=== PATIENT | male | born 1935 | race African-American/Black ===

== ENCOUNTER 2022-02-13 16:23 | Inpatient (IN) | payer MEDICARE, BC ==
[~2022-02-13] VITALS: Ht 175.3 cm; Wt 95.3 kg
--- NOTE | 2022-02-13 17:00 | NUR ---
Family at bedside Both aware of plan.
[2022-02-13 17:28] LABS: BASOPHILS % (AUTO) 0.4 % (0.0-2.0); EOSINOPHILS % (AUTO) 1.9 % (0.0-6.0); HEMATOCRIT 35 % (39-51); HEMOGLOBIN 11.7 g/dL (13.5-17.5); LYMPHOCYTES # (AUTO) 0.8 K/uL (0.8-4.8); LYMPHOCYTES % (AUTO) 17.2 % (20.0-44.0); MEAN CORPUSCULAR HGB CONC 34 g/dl (31.0-36.0); MEAN CORPUSCULAR VOLUME 101 fL (80-96); MONOCYTES # (AUTO) 0.6 K/uL (0.1-1.30); MONOCYTES % (AUTO) 13.3 % (2.0-12.0); NEUTROPHILS # (AUTO) 3.3 K/uL (1.8-8.9); NEUTROPHILS % (AUTO) 67.2 % (43.0-81.0); PLATELET COUNT (AUTO) 234 K/uL (150-450); RED BLOOD CELL COUNT(AUTO) 3.45 MIL/uL (4.5-6.0); WHITE BLOOD COUNT (AUTO) 4.8 K/uL (4.3-11.0)
[2022-02-13 17:44] LABS: CALCIUM, SERUM 8.7 mg/dL (8.5-10.1); CARBON DIOXIDE 26 mmol/L (21-32); CHLORIDE 103 mmol/L (98-107); CREATININE 1.6 mg/dL (0.6-1.3); GLUCOSE 134 mg/dL (74-106); POTASSIUM 4.9 mmol/L (3.5-5.1); SODIUM SERUM 137 mmol/L (136-145); UREA NITROGEN, BLOOD 27 mg/dL (7-18)
[2022-02-13 18:02] LABS: ALANINE AMINOTRANSFERASE 13 U/L (12-78); ALBUMIN 3.7 g/dL (3.4-5.0); ALKALINE PHOSPHATASE 76 U/L (46-116); ASPARTATE AMINOTRANSFERASE 16 U/L (15-37); BILIRUBIN,DIRECT 0.1 mg/dL (0.0-0.2); BILIRUBIN,TOTAL 0.5 mg/dL (0.2-1.0)
--- NOTE | 2022-02-13 19:08 | NUR ---
SUBMITTED MOVE SHEETS
--- NOTE | 2022-02-13 19:25 | NUR ---
RECEIVED REPORT FROM ARJUN KEITH. PATIENT CAME EARLIER WITH CC OF SYNCOPAL EPISODE AT HOME AFTER HAVING 2 GLASSES OF LATASHA. PER PATIENT THIS IS THE FIRST TIME THAT HAPPENED. USUALLY HE HAS [place] EVERYDAY. PATIENT IS AAOX4. ABLE TO MAKE NEEDS KNOWN. ATTACHED TO MONITOR. VITALS CHECKED.
--- NOTE | 2022-02-13 19:49 | NUR ---
Note [email or web address] in EDM - 02/13/22 at 1959 by GERMAINE RECEIVED REPORT FROM ARJUN GALDAMEZ. PATIENT CAME WITH TRACHE AND WAS USING VENT. HE CAME WITH CC OF UNABLE TO SWALLOW. PATIENT HAS FLAVIO UPPER AND LOWER EXTREMITIES CONTRACTURES. HE RESPONDS BY KNODDING HIS HEAD AND TALKING...
--- NOTE | 2022-02-13 19:49 | NUR ---
Note sandeep in EDM - 02/13/22 at 1959 by GERMAINE CAREGIVER AND RT AT BEDSIDE. PATIENT HAS NO PAIN COMPLAINTS. ATTACHED TO MONITOR. VITALS CHECKED.
--- NOTE | 2022-02-13 20:14 | NUR ---
COVID SWAB DONE AND SENT TO LAB
--- NOTE | 2022-02-13 20:31 | NUR ---
CALLED [facility], PAGED FOR ADMISSION
[2022-02-13] MEDS ORDERED: MAG HYDROX/AL HYDROX/SIMETH 30 ML UDC PO PRN (21:00)
[2022-02-13] MEDS ORDERED: ACETAMINOPHEN 325 MG TABLET PO PRN (21:00)
[2022-02-13] MEDS ORDERED: ONDANSETRON HCL/PF 4 MG/2 ML VIAL IVP PRN (21:00)
[2022-02-13] MEDS ORDERED: Z GUARD REMEDY 4 OZ OINT TP PRN (21:00)
[2022-02-13] MEDS ORDERED: MAGNESIUM HYDROXIDE 30 ML UDC PO PRN (21:00)
[2022-02-13] MEDS ORDERED: IV NS 0.9% 1,000 ML IV PRN (21:00)
[2022-02-13] MEDS ORDERED: FAMOTIDINE (20 MG) 20 MG TABLET ONE (21:26)
--- NOTE | 2022-02-13 21:28 | NUR ---
2DECHO DONE AT BEDSIDE
[2022-02-13] MEDS ORDERED: FAMOTIDINE (20 MG) 20 MG TABLET PO ONE (21:30)
--- NOTE | 2022-02-13 21:42 | NUR ---
EF 65-70 PER TECH
--- NOTE | 2022-02-14 02:56 | NUR ---
REPORT GIVEN TO GISELE ValdiviaW RN FOR SEAN
[2022-02-14 04:30] VITALS: BP 152/69
--- NOTE | 2022-02-14 04:30 | NUR ---
TOOL GRINDER OPERATOR EXTERNALDEICER TESTER NOTES RECEIVED FROM ER,VIA KATERINE THIS 86 YO OLD MALE ALERT,ORIENTED X4,WITH CHIEF COMPLAINTS OF SYNCOPAL EPISODES WHILE SITTING AT A [employer].ALERT,ORIENTED X4,ABLE TO MAKE NEEDS KNOWN,AMBULATE WITH CANE,WITH KNOWN HISTORY LEFT ANKLE FRACTURE,NO FALL HX,NOTED DIABETIC FOOT SKIN DISCOLORATION.DENIES DIZZINESS.SALINE LOCK LEFT AC INTACT AND PATENT.WILL START ON IVF ORDERED.KIMBERLY CHEST PAIN,O2 SAT 98% ON ROOM AIR.CALL LIGHT IN REACH,NEEDS ANTICIPATED.
--- NOTE | 2022-02-14 04:39 | NUR ---
TRANSFERRED TO ROOM VIA ACLS PROTOCOL
[2022-02-14 05:00] VITALS: BP 152/69
[2022-02-14 06:26] VITALS: BP 152/69
[2022-02-14 06:27] VITALS: BP 141/57
[2022-02-14 06:29] VITALS: BP 135/59
--- NOTE | 2022-02-14 06:46 | NUR ---
TOOLING MECHANIC NOTES IVF NS AT 75ML/HR RATE STARTED.
--- NOTE | 2022-02-14 06:47 | NUR ---
SOCCER COMMENTATOR NOTES SB-55 ON TELE MONITOR.ORTHOSTATIC BP CHECKED AND RECORDED.DENIES CHEST PAIN.INSTRUCTED BREAKFAST WILL BE DELAYED TILL SEEN BT PHYSICAL SECURITY ENGINEER, OTHERWISE STABLE.
[2022-02-14 07:15] LABS: CALCIUM, SERUM 8.9 mg/dL (8.5-10.1); CARBON DIOXIDE 25 mmol/L (21-32); CHLORIDE 103 mmol/L (98-107); CREATININE 1.3 mg/dL (0.6-1.3); GLUCOSE 136 mg/dL (74-106); MAGNESIUM 2.6 mg/dL (1.8-2.4); PHOSPHORUS 3.4 mg/dL (2.5-4.9); POTASSIUM 4.5 mmol/L (3.5-5.1); SODIUM SERUM 135 mmol/L (136-145); UREA NITROGEN, BLOOD 30 mg/dL (7-18)
[2022-02-14 07:21] LABS: THYROID STIMULATING HORMONE 1.231 uIU/mL (0.358-3.74)
[2022-02-14] MEDS ORDERED: PANTOPRAZOLE 40 MG TABLET.DR PO SCH (07:30)
--- NOTE | 2022-02-14 07:40 | NUR ---
TELECOMMUNICATIONS ADMINISTRATOR OPENING NOTES RECEIVED PATIENT ALERT,ORIENTED X4,ABLE TO MAKE NEEDS KNOWN,AMBULATE WITH CANE, SALINE LOCK LEFT AC INTACT AND PATENT. ON ROOM AIR TOLERATING WELL . ALL SAFETY MEASURES MAINTAINED: BED LOCKED AND IN LOWEST POSITION, SIDE RAILS UP X2. CALL LIGHT IN EASY REACH. WILL CONTINUE TO MONITOR.
[2022-02-14 08:00] VITALS: BP 137/62
[2022-02-14 08:33] LABS: BASOPHILS % (AUTO) 0.2 % (0.0-2.0); EOSINOPHILS % (AUTO) 1.1 % (0.0-6.0); HEMATOCRIT 32 % (39-51); HEMOGLOBIN 10.6 g/dL (13.5-17.5); LYMPHOCYTES # (AUTO) 1.1 K/uL (0.8-4.8); MEAN CORPUSCULAR HGB CONC 33 g/dl (31.0-36.0); MEAN CORPUSCULAR VOLUME 101 fL (80-96); MONOCYTES # (AUTO) 0.6 K/uL (0.1-1.30); MONOCYTES % (AUTO) 10.1 % (2.0-12.0); NEUTROPHILS # (AUTO) 4.4 K/uL (1.8-8.9); NEUTROPHILS % (AUTO) 70.6 % (43.0-81.0); PLATELET COUNT (AUTO) 224 K/uL (150-450); RED BLOOD CELL COUNT(AUTO) 3.18 MIL/uL (4.5-6.0); WHITE BLOOD COUNT (AUTO) 6.2 K/uL (4.3-11.0)
[2022-02-14 09:11] LABS: IRON, SERUM 89 ug/dl (50-175); TOTAL IRON BINDING CAPACITY 229 ug/dl (250-450)
[2022-02-14] MEDS ORDERED: ATOR40TA PO (09:11)
[2022-02-14] MEDS ORDERED: CYCL30DR EACHEYE (09:11)
[2022-02-14] MEDS ORDERED: CLOP75TA15 PO (09:11)
[2022-02-14] MEDS ORDERED: AMLO-212 PO (09:11)
[2022-02-14] MEDS ORDERED: EZET10TA32 PO (09:11)
[2022-02-14] MEDS ORDERED: METF-440 PO (09:11)
[2022-02-14] MEDS ORDERED: OLME20TA23 PO (09:11)
[2022-02-14] MEDS ORDERED: TAMS-12 PO (09:11)
[2022-02-14] MEDS ORDERED: FURO20TA4 PO (09:11)
[2022-02-14 09:43] LABS: CHOLESTEROL 117 mg/dL (<200); FERRITIN 242 ng/mL (8-388); HDL CHOLESTEROL 52 mg/dL (40-60); LDL 61 mg/dL (0-99); TRIGLYCERIDES 92 mg/dL (30-150)
[2022-02-14] MEDS ORDERED: HOME MED MISCELLANEOUS XX SCH (10:30)
--- NOTE | 2022-02-14 11:20 | NUR ---
DISCHARGED NOTE DISCHARGED PATIENT TO HOME IN A STABLE CONDITION A/OX4. ON RA, TOLERATING WELL. NO SOB NOTED. VITALS TAKEN, STABLE AND RECORDED. DENIES PAIN OR DISCOMFORT AT THIS TIME. ALL BELONGINGS ACCOUNTED TO PATIENT. DISCHARGED INSTRUCTION RELAYED TO PATIENT. IV ACCESS REMOVED WITH NO ACTIVE BLEEDING. PATIENT LEFT THE UNIT VIA WHEELCHAIR ACCOMPANIED BY SON. DISCHARGED.
[2022-02-14] MEDS ORDERED: TAMSULOSIN 0.4 MG CAP.SR.24H PO SCH (22:00)
[2022-02-14] MEDS ORDERED: ATORVASTATIN 40 MG TABLET PO SCH (22:00)
[2022-02-15] MEDS ORDERED: AMLODIPINE BESYLATE 5 MG TABLET PO SCH (09:00)
[2022-02-15] MEDS ORDERED: EZETIMIBE 10 MG TABLET PO SCH (09:00)
[2022-02-15] MEDS ORDERED: METFORMIN 500 MG TABLET PO SCH (09:00)
[2022-02-15] MEDS ORDERED: CLOPIDOGREL BISULFATE 75 MG TABLET PO SCH (09:00)
[2022-02-15] MEDS ORDERED: LOSARTAN POTASSIUM 50 MG TABLET PO SCH (11:00)
== END 2022-02-14 11:20 | disposition home or self-care (01) | DRG 73 ==
LOC: ER 16:28 → TELE 02-14 01:43
PROVIDERS: ADMIT Registered Nurse; ATTEND Nurse Practitioner Acute Care
DX: G90.8 Other disorders of autonomic nervous system (principal); N17.0 Acute kidney failure with tubular necrosis; I10 Essential (primary) hypertension; E78.5 Hyperlipidemia, unspecified; D64.9 Anemia, unspecified; E11.9 Type 2 diabetes mellitus without complications; E66.9 Obesity, unspecified; Z68.30 Body mass index [BMI] 30.0-30.9, adult
CPT/HCPCS: 36415; 71045-TC; 80048-TC; 80061-TC; 80076-TC; 82728-TC; 82962-TC; 83540-TC; 83735-TC; 83880; 84100-TC; 84443-TC; 84484-TC; 85025-TC; 87081-TC; 93307-TC; 97112-TC; 97116-TC; 97530-TC; C9803; G0378; J7030